=== PATIENT | female | born 1930 | race African-American/Black ===

== ENCOUNTER 2016-08-08 12:51 | Inpatient (IN) | payer MEDICARE, OTHER ==
[2016-08-08] VITALS (7 sets, daily range): BP systolic 120–162; BP diastolic 58–88; PULSE 65–118; RESP 16–20; TEMP 98.1–99.1; O2SAT 86–100
[~2016-08-08] VITALS: Ht 157.5 cm; Wt 77.6 kg
[2016-08-08] MEDS ORDERED: SODIUM CHLORIDE 0.9% FLUSH 5 ML FLUSH IVF PRN (13:30)
[2016-08-08] MEDS ORDERED: methylPREDNISolone SOD SUCC 125 MG/2 ML VIAL IVP ONE (13:30)
--- NOTE | 2016-08-08 13:36 | PD ---
HPI Chief Complaint: Respiratory Symptoms Time Seen by Provider: 13:16 Travel History International Travel<30 days: No Contact w/Intl Traveler<30days: No Traveled to known affect area: No History of Present Illness HPI 85-year-old female with history of diabetes, CVA, on Plavix, brought in from home for evaluation of cough and shortness of breath. According to the patient' s grandson, the patient seems more short of breath at night. Shortness of breath has been worse over the last couple of days, is at rest, worse with exertion. No known history of cardiopulmonary disease. She states she has been coughing, but it has been nonproductive. No fevers or chills. No abdominal pain, nausea, or vomiting. The patient also reports a history of a blood clot in her left leg years ago, however she is not on any anticoagulants. No chest pain. PFSH Past Medical History Deep Vein Thrombosis: Yes Influenza Vaccination: No Past Surgical History Surgical History: No Previous Surgery Social History Alcohol Use: Yes (RARELY) Tobacco Use: No Substance Use: No Allergies-Medications (Allergen,Severity, Reaction): Coded Allergies: Penicillin (Verified Allergy, Unknown, 08/08/16) Reported Meds & Prescriptions Reported Meds & Active Scripts Active Reported Gabapentin 100 Mg Cap 100 Mg PO HS Aspirin 325 Mg Tab 325 Mg PO ONCE Hydralazine (Hydralazine HCl) 25 Mg Tab 25 Mg PO TID Take with a meal Levothyroxine (Levothyroxine Sodium) 88 Mcg Tab 88 Mcg PO DAILY Glimepiride 2 Mg Tab 2 Mg PO DAILY Take with breakfast or first main meal Clopidogrel (Clopidogrel Bisulfate) 75 Mg Tab 37.5 Mg PO DAILY Amlodipine (Amlodipine Besylate) 10 Mg Tab 10 Mg PO DAILY Review of Systems Except as stated in HPI: all other systems reviewed are Neg Physical Exam Narrative GENERAL: Pleasant, well-developed, well-nourished, elderly-appearing female, in mild to moderate respiratory distress, speaking full sentences. SKIN: Warm and dry. HEAD: Atraumatic. Normocephalic. EYES: Pupils equal and round. No scleral icterus. No injection or drainage. ENT: Mucous membranes pink and moist. NECK: Trachea midline. No JVD. CARDIOVASCULAR: Regular rate and rhythm. No murmur appreciated. RESPIRATORY: Accessory muscle use. Intercostal retractions. Inspiratory and expiratory wheezes bilaterally. Coarse breath sounds bilaterally. No rales. Poor air movement bilaterally. GASTROINTESTINAL: Abdomen soft, non-tender, nondistended. Hepatic and splenic margins not palpable. MUSCULOSKELETAL: No obvious deformities. No clubbing. No cyanosis. Mild bilateral pedal edema. NEUROLOGICAL: Awake and alert. No obvious cranial nerve deficits. Motor grossly within normal limits. Normal speech. PSYCHIATRIC: Appropriate mood and affect; insight and judgment normal. Data Data Last Documented VS Vital Signs Date Time Temp Pulse Resp B/P Pulse Ox O2 Delivery O2 Flow Rate FiO2 08/08/16 14:51 65 16 154/77 98 Nasal Cannula 2 08/08/16 12:53 98.1 Orders Electrocardiogram (08/08/16 ) Complete Blood Count With Diff (08/08/16 13:20) Comprehensive Metabolic Panel (08/08/16 13:20) B-Type Natriuretic Peptide (08/08/16 13:20) Act Partial Throm Time (Ptt) (08/08/16 13:20) Prothrombin Time / Inr (Pt) (08/08/16 13:20) Ckmb (Isoenzyme) Profile (08/08/16 13:20) Troponin I (08/08/16 13:20) Arterial Blood Gas (Abg) (08/08/16 13:20) Influenzae A/B Antigen (08/08/16 13:20) Blood Culture (08/08/16 13:20) Iv Access Insert/Monitor (08/08/16 13:20) Ecg Monitoring (08/08/16 13:20) Oximetry (08/08/16 13:20) Oxygen Administration (08/08/16 13:20) Chest, Single Ap (08/08/16 13:20) Sodium Chloride 0.9% Flush (Ns Flush) (08/08/16 13:30) Methylprednisolone So Succ Inj (Solumedr (08/08/16 13:30) Albuterol-Ipratropium Neb (Duoneb Neb) (08/08/16 13:30) Lactic Acid (08/08/16 13:20) Furosemide Inj (Lasix Inj) (08/08/16 15:15) Ceftriaxone Inj (Rocephin Inj) (08/08/16 15:15) Azithromycin Inj (Zithromax Inj) (08/08/16 15:15) Labs Laboratory Tests Test 08/08/16 08/08/16 08/08/16 13:35 13:39 14:05 White Blood Count 5.8 TH/MM3 Red Blood Count 4.84 MIL/MM3 Hemoglobin 12.2 GM/DL Hematocrit 38.3 % Mean Corpuscular Volume 79.0 FL Mean Corpuscular Hemoglobin 25.2 PG Mean Corpuscular Hemoglobin 31.9 % Concent Red Cell Distribution Width 17.0 % Platelet Count 170 TH/MM3 Mean Platelet Volume 10.1 FL Neutrophils (%) (Auto) 67.4 % Lymphocytes (%) (Auto) 20.8 % Monocytes (%) (Auto) 8.0 % Eosinophils (%) (Auto) 2.5 % Basophils (%) (Auto) 1.3 % Neutrophils # (Auto) 3.9 TH/MM3 Lymphocytes # (Auto) 1.2 TH/MM3 Monocytes # (Auto) 0.5 TH/MM3 Eosinophils # (Auto) 0.1 TH/MM3 Basophils # (Auto) 0.1 TH/MM3 CBC Comment DIFF FINAL Differential Comment Prothrombin Time 10.7 SEC Prothromb Time International 1.0 RATIO Ratio Activated Partial 25.7 SEC Thromboplast Time Sodium Level 142 MEQ/L Potassium Level 4.1 MEQ/L Chloride Level 109 MEQ/L Carbon Dioxide Level 21.8 MEQ/L Anion Gap 11 MEQ/L Blood Urea Nitrogen 18 MG/DL Creatinine 2.24 MG/DL Estimat Glomerular Filtration 25 ML/MIN Rate Random Glucose 106 MG/DL Calcium Level 8.7 MG/DL Total Bilirubin 0.5 MG/DL Aspartate Amino Transf 21 U/L (AST/SGOT) Alanine Aminotransferase 18 U/L (ALT/SGPT) Alkaline Phosphatase 100 U/L Total Creatine Kinase 78 U/L Troponin I 0.07 NG/ML B-Type Natriuretic Peptide 1113 PG/ML Total Protein 7.6 GM/DL Albumin 3.6 GM/DL Blood Gas Puncture Site RT RADIAL Blood Gas Patient Temperature 98.6 Blood Gas HCO3 23 mmol/L Blood Gas Base Excess -2.0 mmol/L Blood Gas Oxygen Saturation 96 % Arterial Blood pH 7.36 Arterial Blood Partial 42 mmHg Pressure CO2 Arterial Blood Partial 257 mmHG Pressure O2 Arterial Blood Oxygen Content 14.5 Vol % Arterial Blood 2.1 % Carboxyhemoglobin Arterial Blood Methemoglobin 1.6 % Blood Gas Hemoglobin 10.3 G/DL Oxygen Delivery Device MASK Blood Gas Liter Flow 8 L/M Lactic Acid Level 1.1 mmol/L MDM Medical Decision Making Medical Screen Exam Complete: Yes Emergency Medical Condition: Yes Interpretation(s) EKG: Sinus, rate 81, normal axis, RBBB, frequent supraventricular complexes, no acute ischemic abnormality. Differential Diagnosis Sepsis, pneumonia, reactive airway disease, CHF, pulmonary edema, oral effusion , PE, ACS Narrative Course Initial vital signs show heart rate 118, blood pressure 162/79, pulse ox 86% on room air, oral temp of 98.1F. CBC shows WBC 5.8, hemoglobin 12.2, hematocrit 30.3, platelets 170. CMP shows creatinine 2.24, GFR 25, otherwise unremarkable. Lactic acid is 1.1. Troponin is 0.07. BNP is 1113. Chest x-ray: CONCLUSION: 1. Cardiomegaly. 2. Bibasilar patchiness (left slightly worse than right) consistent with atelectasis and/or infiltrates. Clinical correlation is recommended. 3. Degenerative changes and scoliosis of the thoracolumbar spine. Influenza is negative. Bibasilar patchiness is likely pulmonary edema given BNP of 1113. She was given a dose of IV Lasix 40 mg. 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 She was also given Rocephin and azithromycin to cover for possible pulmonary infiltrate. She will be admitted for further treatment and evaluation of CHF, dyspnea. Diagnosis Primary Impression: CHF (congestive heart failure) Qualified Code: I50.9 - Congestive heart failure, unspecified congestive heart failure chronicity, unspecified congestive heart failure type Additional Impression: Dyspnea Qualified Code: R06.00 - Dyspnea, unspecified type Admitting Information Admitting Physician Requests: Admit Kristian Alcala MD Aug 08, 2016 13:36
[2016-08-08] MEDS: RESP: ALBUTEROL 2.5 MG/IPRATROPIUM 0.5 MG NEB (SCH) INH (13:41)
[2016-08-08 13:49] LABS: BLOOD GAS CARBOXYHEMOGLOBIN 2.1 % (0-4); BLOOD GAS HCO3 23 mmol/L (22-26); BLOOD GAS METHEMOGLOBIN 1.6 % (0-2); BLOOD GAS O2 HGB SATURATION 96 % (90-100); BLOOD GAS OXYGEN CONTENT 14.5 Vol % (12.0-20.0); BLOOD GAS PCO2 42 mmHg (38-42); BLOOD GAS PO2 257 mmHG (61-120); BLOOD GAS TOTAL HGB 10.3 G/DL (12.0-16.0); CRITICAL VALUE NO; DRAW SITE RT RADIAL; LITER FLOW 8 L/M; NUMBER OF ARTERIAL PUNCTURES 1; OXYGEN DEVICE MASK; STAT YES; TEMP CORR TO 98.6; ULNAR PULSE PRESENT
[2016-08-08 13:58] LABS: APTT (PATIENT) 25.7 SEC (24.3-30.1); AUTOMATED NEUTROPHIL # 3.9 TH/MM3 (1.8-7.7); BASOPHIL # 0.1 TH/MM3 (0-0.2); BASOPHIL % 1.3 % (0.0-2.0); EOSINOPHIL # 0.1 TH/MM3 (0-0.4); EOSINOPHIL % 2.5 % (0.0-4.0); HEMATOCRIT 38.3 % (35.0-46.0); HEMO FLAGS DIFF FINAL; LYMPH % 20.8 % (9.0-44.0); LYMPHOCYTE # 1.2 TH/MM3 (1.0-4.8); MEAN CORPUSCULAR HEMOGLOBIN 25.2 PG (27.0-34.0); MEAN CORPUSCULAR HGB CONC 31.9 % (32.0-36.0); NEUT % 67.4 % (16.0-70.0); PLATELET COUNT 170 TH/MM3 (150-450); PROTHROMBIN TIME - PATIENT 10.7 SEC (9.8-11.6); RED BLOOD COUNT 4.84 MIL/MM3 (4.00-5.30); WHITE BLOOD COUNT 5.8 TH/MM3 (4.0-11.0)
[2016-08-08 14:16] LABS: ALKALINE PHOSPHATASE 100 U/L (45-117); ALT (GPT) 18 U/L (10-53); ANION GAP 11 MEQ/L (5-15); BICARBONATE 21.8 MEQ/L (21.0-32.0); BLOOD UREA NITROGEN 18 MG/DL (7-18); CHLORIDE 109 MEQ/L (98-107); GLOMERULAR FILTRATION RATE 25 ML/MIN (>89); SODIUM (NA) 142 MEQ/L (136-145); TOTAL BILIRUBIN ADULT 0.5 MG/DL (0.2-1.0)
[2016-08-08 14:17] LABS: AST (GOT) 21 U/L (15-37); CREATINE KINASE 78 U/L (26-192); POTASSIUM 4.1 MEQ/L (3.5-5.1)
--- NOTE | 2016-08-08 15:11 | RADRPT ---
EXAM DATE/TIME: 08/08/2016 13:59 [facility] COMPARISON: No previous studies available for comparison. INDICATIONS : Shortness of breath. MEDICAL HISTORY : Unobtainable. SURGICAL HISTORY : Unobtainable. ENCOUNTER: Initial ACUITY: 1 day PAIN SCORE: 0/10 LOCATION: Chest FINDINGS: The heart is enlarged. Minimal patchiness is noted within the left lung base and to a lesser extent right lung base consistent with atelectasis and/or infiltrates. Clinical correlation is recommended. Degenerative changes and scoliosis of the thoracolumbar spine are noted. CONCLUSION: 1. Cardiomegaly. 2. Bibasilar patchiness (left slightly worse than right) consistent with atelectasis and/or infiltrat es. Clinical correlation is recommended. 3. Degenerative changes and scoliosis of the thoracolumbar spine. Ari Fiore MD on August 08, 2016 at 14:59 Board Certified Radiologist. This report was verified electronically.
[2016-08-08] MEDS ORDERED: cefTRIAXone INJ 1,000 MG in SODIUM CHLORIDE 0.9% INJ 100 ML IV ONE (15:15)
[2016-08-08] MEDS ORDERED: FUROSEMIDE 40 MG/4 ML VIAL IV PUSH ONE (15:15)
[2016-08-08] MEDS ORDERED: AZITHROMYCIN INJ 500 MG in SODIUM CHLOR 0.9% 250 ML INJ 250 ML IV ONE (15:15)
[2016-08-08] MEDS ORDERED: HYDR25TA35 PO (15:18)
[2016-08-08] MEDS ORDERED: ASPI325T PO (15:18)
[2016-08-08] MEDS ORDERED: GLIM2TAB PO (15:18)
[2016-08-08] MEDS ORDERED: AMLO10TA2 PO (15:18)
[2016-08-08] MEDS ORDERED: GABA100C4 PO (15:18)
[2016-08-08] MEDS ORDERED: CLOP75TA PO (15:18)
[2016-08-08] MEDS ORDERED: LEVO88TA2 PO (15:18)
[2016-08-08] MEDS ORDERED: NALOXONE HCL 0.4 MG/ML AMP IV PRN (17:00)
[2016-08-08] MEDS ORDERED: SODIUM CHLORIDE 0.9% FLUSH 5 ML FLUSH FLUSH PRN (17:00)
[2016-08-08] MEDS ORDERED: ONDANSETRON HCL 4 MG/2 ML VIAL IVP PRN (17:00)
[2016-08-08] MEDS ORDERED: ACETAMINOPHEN 325 MG TAB PO PRN (17:00)
[2016-08-08] MEDS ORDERED: MAGNESIUM HYDROXIDE SUSP 30 ML CUP PO PRN (17:00)
--- NOTE | 2016-08-08 17:31 | HHI.HP ---
[facility] No Primary Care Physician Admission Diagnosis CHF, dyspnea, hypoxia Diagnoses: Chief Complaint: Increased shortness of breath, cough Travel History International Travel<30 Days: No Contact w/Intl Traveler <30 Da: No Traveled to Known Affected Are: No Sepsis Criteria SIRS Criteria (2 or more): Heart rate over 90 History of Present Illness Patient is an 85-year-old female with primary medical history of hypertension, diabetes, CVA who came into the hospital with complaints of increasing shortness of breath and increasing cough. Reports that she has been having increasing shortness of breath cough started a few days ago but worsened in the last 2 days. Patient reports worse with exertion. Coughing but not expectorating anything. Denies any history of cardiopulmonary disease or diagnosis of congestive heart failure. Denies fevers, chills, nausea, vomiting , diarrhea. Denies chest pain, palpitations, headache, lightheadedness. Denies any dysuria, hematuria, abdominal pain. As per ER report, patient but history of blood clot in her left leg years ago but not on any anticoagulants. Labs reviewed. CBC with low MCV 79, MCH 25.5, MCHC 31.9. CMP chloride 109, creatinine 2.24, estimated GFR 25. First troponin 0.07. BNP 1113. Chest x-ray showed cardiomegaly. Bibasilar patchiness (left slightly worse than right) consistent with atelectasis and/or infiltrates. Clinical correlation is recommended. Degenerative changes and scoliosis of the thoracolumbar spine. Negative for flu a and B. Blood Cultures pending The patient complains of increasing shortness of breath. She does complain of chest pain from time to time. She does admit to some lower extremity swelling. She ambulates with a cane and a walker. She does not have home oxygen. She does not follow-up with doctors regularly. She was complaining of pain in her left IV site. Review of Systems Except as stated in HPI: all other systems reviewed are Neg Negative except for what is noted on history of present illness. Past Family Social History Past Medical History HTN DM Hypothyroidism CVA DVT Past Surgical History None Reported Medications Gabapentin 100 Mg Cap 100 Mg PO HS Aspirin 325 Mg Tab 325 Mg PO ONCE Hydralazine (Hydralazine HCl) 25 Mg Tab 25 Mg PO TID Take with a meal Levothyroxine (Levothyroxine Sodium) 88 Mcg Tab 88 Mcg PO DAILY Glimepiride 2 Mg Tab 2 Mg PO DAILY Take with breakfast or first main meal Clopidogrel (Clopidogrel Bisulfate) 75 Mg Tab 37.5 Mg PO DAILY Amlodipine (Amlodipine Besylate) 10 Mg Tab 10 Mg PO DAILY Allergies: Coded Allergies: Penicillin (Verified Allergy, Unknown, 08/08/16) Active Ordered Medications Current Medications Medications (Trade) Dose Ordered Sig/Vern Route Start Time Stop Time Status Last Admin (NS Flush) 2 ml UNSCH PRN IVF 08/08/16 13:30 Family History Patient does not know family medical history Social History Denies alcohol use Denies tobacco use Denies illicit drug use Physical Exam Vital Signs Vital Signs Date Time Temp Pulse Resp B/P Pulse Ox O2 Delivery O2 Flow Rate FiO2 08/08/16 14:51 65 16 154/77 98 Nasal Cannula 2 08/08/16 13:24 96 Nasal Cannula 2 08/08/16 12:53 98.1 118 17 162/79 86 Physical Exam GENERAL: This is a well-nourished, well-developed patient, in no apparent distress. SKIN: No rashes, ecchymoses or lesions. Cool and dry. HEAD: Atraumatic. Normocephalic. No temporal or scalp tenderness. EYES: Pupils equal round and reactive. Extraocular motions intact. No scleral icterus. No injection or drainage. Right eye lid droop ENT: Nose without bleeding. Throat without erythema. Uvula midline. Airway patent. NECK: Trachea midline. No JVD or lymphadenopathy. Supple, nontender, no meningeal signs. CARDIOVASCULAR: Regular rate and rhythm without murmurs, gallops, or rubs. RESPIRATORY: Bilateral bases with crackles left greater than the right. On 2 L nasal cannula. + expiratory wheezing. GASTROINTESTINAL: Abdomen soft, non-tender, nondistended. No sounds active 4 No guarding. MUSCULOSKELETAL: Extremities without clubbing, cyanosis, bilateral lower extremity +1 edema right greater than the left. No joint tenderness, effusion, or edema noted. No calf tenderness. Negative Homans sign bilaterally. NEUROLOGICAL: Awake and alert. Motor and sensory grossly within normal limits. Moves all extremities. Normal speech. Laboratory Laboratory Tests Test 08/08/16 08/08/16 08/08/16 13:35 13:39 14:05 White Blood Count 5.8 Red Blood Count 4.84 Hemoglobin 12.2 Hematocrit 38.3 Mean Corpuscular Volume 79.0 Mean Corpuscular Hemoglobin 25.2 Mean Corpuscular Hemoglobin 31.9 Concent Red Cell Distribution Width 17.0 Platelet Count 170 Mean Platelet Volume 10.1 Neutrophils (%) (Auto) 67.4 Lymphocytes (%) (Auto) 20.8 Monocytes (%) (Auto) 8.0 Eosinophils (%) (Auto) 2.5 Basophils (%) (Auto) 1.3 Neutrophils # (Auto) 3.9 Lymphocytes # (Auto) 1.2 Monocytes # (Auto) 0.5 Eosinophils # (Auto) 0.1 Basophils # (Auto) 0.1 CBC Comment DIFF FINAL Differential Comment Prothrombin Time 10.7 Prothromb Time International 1.0 Ratio Activated Partial 25.7 Thromboplast Time Sodium Level 142 Potassium Level 4.1 Chloride Level 109 Carbon Dioxide Level 21.8 Anion Gap 11 Blood Urea Nitrogen 18 Creatinine 2.24 Estimat Glomerular Filtration 25 Rate Random Glucose 106 Calcium Level 8.7 Total Bilirubin 0.5 Aspartate Amino Transf 21 (AST/SGOT) Alanine Aminotransferase 18 (ALT/SGPT) Alkaline Phosphatase 100 Total Creatine Kinase 78 Troponin I 0.07 B-Type Natriuretic Peptide 1113 Total Protein 7.6 Albumin 3.6 Blood Gas Puncture Site RT RADIAL Blood Gas Patient Temperature 98.6 Blood Gas HCO3 23 Blood Gas Base Excess -2.0 Blood Gas Oxygen Saturation 96 Arterial Blood pH 7.36 Arterial Blood Partial 42 Pressure CO2 Arterial Blood Partial 257 Pressure O2 Arterial Blood Oxygen Content 14.5 Arterial Blood 2.1 Carboxyhemoglobin Arterial Blood Methemoglobin 1.6 Blood Gas Hemoglobin 10.3 Oxygen Delivery Device MASK Blood Gas Liter Flow 8 Lactic Acid Level 1.1 Date/Time Procedure Status Source Growth 08/08/16 14:05 Aerobic Blood Culture Received Blood Peripheral Pending 08/08/16 14:05 Anaerobic Blood Culture Received Blood Peripheral Pending 08/08/16 13:35 Influenza Types A,B Antigen ([facility]) - Final Complete Nasal Washing NEGATIVE FOR FLU A AND B ANTIGEN.... Result Diagram: 08/08/16 1335 08/08/16 1335 Imaging Chest x-ray showed cardiomegaly. Bibasilar patchiness (left slightly worse than right) consistent with atelectasis and/or infiltrates. Clinical correlation is recommended. Degenerative changes and scoliosis of the thoracolumbar spine. Assessment and Plan Problem List: (1) CHF (congestive heart failure) ICD Code: I50.9 Status: Acute (2) Dyspnea ICD Code: R06.00 Status: Acute (3) HTN (hypertension) ICD Code: I10 Status: Chronic (4) DM type 2 (diabetes mellitus, type 2) ICD Code: E11.9 Status: Chronic Assessment and Plan Patient is an 85-year-old female with primary medical history of hypertension, diabetes, CVA who came into the hospital with complaints of increasing shortness of breath and increasing cough. Reports that she has been having increasing shortness of breath cough started a few days ago but worsened in the last 2 days. Patient reports worse with exertion. Coughing but not expectorating anything. Acute CHF exacerbation - BNP 1113. Patient was never diagnosed CHF previously. Has not been seen by any base ply hand. - Lasix 40 mg given. Will continue Lasix use. Pt. has not voided yet, Trejo to insert monitor I& O. - Echo ordered. Follow-up results - Cardiology consulted for further recommendations. - Continue O2 2 L nasal cannula. Continue diuresis. Check a lipid profile and hemoglobin A1c. Follow echo results. Add a beta echo. Follow with cardiology. ? PNA - chest x-ray showed cardiomegaly. Bibasilar patchiness (left slightly worse than right) consistent with atelectasis and/or infiltrates. Clinical correlation is recommended. Degenerative changes and scoliosis of the thoracolumbar spine. - Patient was given ceftriaxone, azithromycin in the ED - Also given methylprednisone 125 mg IV, DuoNeb treatments. - Continue with DuoNeb's when necessary Continue IV antibiotics. Check a sputum culture. Acute kidney injury on chronic kidney disease - possible chronic kidney disease secondary to diabetes - Creatinine 2.24, BUN 18 - Avoid unnecessary nephrotoxins. Unsure of baseline. Continue to monitor creatinine while diuresing. HTN - monitor BP trend. Patient on Norvasc 10 mg, hydralazine 25 3 times a day at home Hold Norvasc for now. Continue home hydralazine. DM 2 - we will hold off on glimepiride. Insulin sliding scale. - Monitor Accu-Cheks. Monitor for hypoglycemia. Hypothyroidism continue with levothyroxine History of CVA - on ASA, Plavix Previous history of DVT not on any anticoagulants DVT prop heparin Code Status Full Code Discussed Condition With Patient, nursing, Physician Certification 2 Midnight Certification Type: Admission for Inpatient Services Order for Inpatient Services The services are ordered in accordance with Medicare regulations or non- Medicare payer requirements, as applicable. In the case of services not specified as inpatient-only, they are appropriately provided as inpatient services in accordance with the 2-midnight benchmark. Estimated LOS (days): 2 days is the estimated time the patient will need to remain in the hospital, assuming treatment plan goals are met and no additional complications. Post-Hospital Plan: Not yet determined Notes: The exam, history, and the medical decision-making described in the above note were completed with the assistance of the mid-level provider. I reviewed and agree with the findings presented. I attest that I had a [id number] encounter with the patient on the same day, and personally performed and documented my assessment and findings in the medical record. Problem Qualifiers (1) CHF (congestive heart failure): Qualified Code: I50.9 - Congestive heart failure, unspecified congestive heart failure chronicity, unspecified congestive heart failure type (2) Dyspnea: Qualified Code: R06.00 - Dyspnea, unspecified type (3) DM type 2 (diabetes mellitus, type 2): Donell Hinton Aug 08, 2016 17:31 Bishop Ruano DO Aug 08, 2016 18:36
[2016-08-08 17:41] LABS: BLOOD, URINE NEG (NEG); COMMENT (UR) CULT NOT INDICATED; CULTURE IF INDICATED CULT NOT INDICATED; GLUCOSE,URINE NEG (NEG); HYALINE CAST, URINE 1 /lpf (RARE); KETONE, URINE NEG (NEG); MUCUS URINE FEW /lpf (OCC); NITRITE,URINE NEG (NEG); SQUAMOUS EPITHELIAL CELL URINE <1 /hpf (0-5); URINE COLOR YELLOW (YELLW/STRAW)
[2016-08-08] MEDS ORDERED: RESP: ALBUTEROL 2.5 MG/IPRATROPIUM 0.5 MG NEB (PRN) NEB (18:30)
[2016-08-08] MEDS ORDERED: ASPIRIN 325 MG TAB PO SCH (19:00)
[2016-08-08] MEDS: RESP: ALBUTEROL 2.5 MG/IPRATROPIUM 0.5 MG NEB (SCH) NEB (19:12)
[2016-08-08] MEDS: FUROSEMIDE 40 MG/4 ML VIAL IV PUSH SCH (19:56)
[2016-08-08] MEDS: CARVEDILOL 3.125 MG TAB PO SCH (20:45)
[2016-08-08] MEDS: hydrALAZINE HCL 25 MG TAB PO SCH (20:45)
[2016-08-08] MEDS: SODIUM CHLORIDE 0.9% FLUSH 5 ML FLUSH FLUSH SCH (20:45)
[2016-08-08] MEDS: GABAPENTIN 100 MG CAP PO SCH (20:46)
[2016-08-08] MEDS: INSULIN ASPART SUPPLEMENTAL SCALE SQ SCH (21:01)
[2016-08-08] MEDS: HEPARIN SODIUM - SQ 10,000 UNITS/ML VIAL SQ SCH (21:58)
[2016-08-08 22:56] LABS: HEMOGLOBIN A1a 0.9 %; HEMOGLOBIN A1b 1.8 %; HEMOGLOBIN Ao 85.9 %; HEMOGLOBIN P3 3.9 %
[2016-08-09] VITALS (10 sets, daily range): BP systolic 96–140; BP diastolic 52–87; PULSE 76–88; RESP 18–20; TEMP 96.5–99.5; O2SAT 93–100
[2016-08-09 02:25] LABS: AUTOMATED NEUTROPHIL # 3.3 TH/MM3 (1.8-7.7); BASOPHIL % 0.6 % (0.0-2.0); EOSINOPHIL % 0.1 % (0.0-4.0); HEMATOCRIT 32.2 % (35.0-46.0); LYMPH % 7.6 % (9.0-44.0); LYMPHOCYTE # 0.3 TH/MM3 (1.0-4.8); MEAN CELL VOLUME 78.8 FL (80.0-100.0); MEAN CORPUSCULAR HEMOGLOBIN 24.5 PG (27.0-34.0); MEAN CORPUSCULAR HGB CONC 31.1 % (32.0-36.0); NEUT % 89.7 % (16.0-70.0); PLATELET COUNT 157 TH/MM3 (150-450); RED BLOOD COUNT 4.08 MIL/MM3 (4.00-5.30); RED CELL DISTRIBUTION WIDTH 16.3 % (11.6-17.2); WHITE BLOOD COUNT 3.6 TH/MM3 (4.0-11.0)
[2016-08-09 02:42] LABS: HEMO FLAGS AUTO DIFF
[2016-08-09 03:18] LABS: ALKALINE PHOSPHATASE 85 U/L (45-117); ALT (GPT) 14 U/L (10-53); ANION GAP 9 MEQ/L (5-15); AST (GOT) 13 U/L (15-37); BICARBONATE 23.9 MEQ/L (21.0-32.0); BLOOD UREA NITROGEN 24 MG/DL (7-18); CHLORIDE 112 MEQ/L (98-107); GLOMERULAR FILTRATION RATE 24 ML/MIN (>89); HDL CHOLESTEROL 81.5 MG/DL (40.0-60.0); LDL CHOLESTEROL 90 MG/DL (0-99); POTASSIUM 4.3 MEQ/L (3.5-5.1); SODIUM (NA) 145 MEQ/L (136-145); TOTAL BILIRUBIN ADULT 0.3 MG/DL (0.2-1.0)
[2016-08-09 04:01] LABS: PLATELET ESTIMATE SMEAR LOW (NORMAL); PLATELET MORPHOLOGY NORMAL (NORMAL); SCAN/DIFF AUTO DIFF CONFIRMED
[2016-08-09 04:02] LABS: OVALOCYTES 1+ (NORMAL)
[2016-08-09] MEDS: HEPARIN SODIUM - SQ 10,000 UNITS/ML VIAL SQ SCH ×3 (06:37→21:11)
[2016-08-09] MEDS: INSULIN ASPART SUPPLEMENTAL SCALE SQ SCH ×4 (06:37→21:00)
[2016-08-09] MEDS: LEVOTHYROXINE SODIUM 88 MCG TAB PO SCH (06:37)
[2016-08-09] MEDS: SODIUM CHLORIDE 0.9% FLUSH 5 ML FLUSH FLUSH SCH ×2 (09:00→21:11)
[2016-08-09] MEDS ORDERED: AZITHROMYCIN 250 MG TAB PO SCH (09:00)
[2016-08-09] MEDS: FUROSEMIDE 40 MG/4 ML VIAL IV PUSH SCH ×3 (09:00→17:59)
[2016-08-09] MEDS: hydrALAZINE HCL 25 MG TAB PO SCH ×3 (09:00→17:32)
[2016-08-09] MEDS: CARVEDILOL 3.125 MG TAB PO SCH ×2 (09:00→21:00)
[2016-08-09] MEDS: CLOPIDOGREL 75 MG TAB PO SCH (09:00)
[2016-08-09] MEDS: POTASSIUM CHLORIDE 10 MEQ CONTROLLED RELEASE TAB PO SCH (09:00)
[2016-08-09] MEDS: RESP: ALBUTEROL 2.5 MG/IPRATROPIUM 0.5 MG NEB (SCH) NEB ×3 (09:54→21:07)
--- NOTE | 2016-08-09 13:25 | EKG ---
Date Performed: 08/08/2016 Time Performed: 19:18:59 PTAGE: 85 years EKG: Sinus rhythm WITH OCCASIONAL SUPRAVENTRICULAR PREMATURE COMPLEXES INDETERMINATE AXIS RIGHT BUNDLE BRANCH BLOCK AB NORMAL ECG PREVIOUS TRACING : 08/08/2016 13.29 Since previous tracing, no significant change noted DOCTOR: Scotty Berry Interpretating Date/Time 08/09/2016 13:27:17
--- NOTE | 2016-08-09 13:27 | EKG ---
Date Performed: 08/08/2016 Time Performed: 13:29:58 PTAGE: 85 years EKG: Sinus rhythm WITH FREQUENT SUPRAVENTRICULAR PREMATURE COMPLEXES RIGHT BUNDLE BRANCH BLOCK ABNORMAL ECG NO PREVIOUS TRACING DOCTOR: Scotty Berry Interpretating Date/Time 08/09/2016 13:25:51
--- NOTE | 2016-08-09 14:33 | HHI.PR ---
Subjective Remarks The patient said that she was feeling better. She said that she has a history of kidney problems and she is followed with a doctor in [place] for it. She had no acute complaints at this time. She said she does cough and sneeze every once in a while. Nursing was at the bedside. Objective Vitals Vital Signs Date Time Temp Pulse Resp B/P Pulse Ox O2 Delivery O2 Flow Rate FiO2 08/09/16 11:25 96.7 85 20 123/70 97 08/09/16 09:56 99 Nasal Cannula 3.00 08/09/16 07:48 96.5 85 20 140/87 98 08/09/16 04:00 98.6 76 18 133/68 98 08/09/16 01:00 97.4 85 20 111/55 93 08/08/16 23:42 99.1 92 20 120/58 99 Nasal Cannula 2 08/08/16 19:30 98.9 84 20 143/64 95 Nasal Cannula 2 08/08/16 19:13 93 Nasal Cannula 2.00 08/08/16 18:13 97 16 145/88 97 Nasal Cannula 2 08/08/16 16:45 66 16 127/69 100 Nasal Cannula 2 08/08/16 14:51 65 16 154/77 98 Nasal Cannula 2 I/O 08/08/16 08/08/16 08/08/16 08/09/16 08/09/16 08/09/16 07:00 15:00 23:00 07:00 15:00 23:00 Intake Total 200 ml Output Total 1550 ml Balance 200 ml -1550 ml Intake Oral 200 ml Output Urine Total 1550 ml Result Diagram: 08/09/1620208/09/16 0203 Imaging Last Impressions Chest X-Ray 08/08/16 1320 Signed Impressions: Service Date/Time: Monday, August 08, 2016 13:59 - CONCLUSION: 1. Cardiomegaly. 2. Bibasilar patchiness (left slightly worse than right) consistent with atelectasis and/or infiltrates. Clinical correlation is recommended. 3. Degenerative changes and scoliosis of the thoracolumbar spine. Ari Firoe MD Objective Remarks GENERAL: This is a well-nourished, well-developed patient, in no apparent distress. SKIN: No rashes, ecchymoses or lesions. Cool and dry. HEAD: Atraumatic. Normocephalic. No temporal or scalp tenderness. EYES: Pupils equal round and reactive. Extraocular motions intact. No scleral icterus. No injection or drainage. Right eye lid droop ENT: Nose without bleeding. Throat without erythema. Uvula midline. Airway patent. NECK: Trachea midline. No JVD or lymphadenopathy. Supple, nontender, no meningeal signs. CARDIOVASCULAR: Regular rate and rhythm without murmurs, gallops, or rubs. RESPIRATORY: Poor respiratory effort. GASTROINTESTINAL: Abdomen soft, non-tender, nondistended. No sounds active 4 No guarding. MUSCULOSKELETAL: Extremities without clubbing, cyanosis, bilateral lower extremity +1 edema right greater than the left. No joint tenderness, effusion noted. NEUROLOGICAL: Awake and alert. Motor and sensory grossly within normal limits. Moves all extremities. Normal speech. Medications and IVs Current Medications Medications (Trade) Dose Ordered Sig/Vern Route Start Time Stop Time Status Last Admin (NS Flush) 2 ml UNSCH PRN FLUSH 08/08/16 17:00 (NS Flush) 2 ml BID FLUSH 08/08/16 21:00 08/08/16 20:45 (Tylenol) 650 mg Q4H PRN PO 08/08/16 17:00 (Zofran Inj) 4 mg Q6H PRN IVP 08/08/16 17:00 (Milk Of Magnesia Liq) 30 ml Q12H PRN PO 08/08/16 17:00 (Narcan Inj) 0.4 mg UNSCH PRN IV 08/08/16 17:00 (Lasix Inj) 40 mg BID@,18 IV PUSH 08/08/16 20:00 08/08/16 19:56 (KCl) 10 meq DAILY PO 08/09/16 09:00 (Heparin Inj) 5,000 units Q8HR SQ 08/08/16 22:00 08/09/16 06:37 (Plavix) 37.5 mg DAILY PO 08/09/16 09:00 (Neurontin) 100 mg HS PO 08/08/16 21:00 08/08/16 20:46 (Apresoline) 25 mg TID PO 08/08/16 20:00 08/08/16 20:45 Levothyroxine Sodium 88 mcg 88 mcg DAILY@0600 PO 08/09/16 06:00 08/09/16 06:37 Azithromycin 500 mg/Sodium Chloride 250 ml @ 250 mls/hr Q24H IV 08/09/16 16:00 (Rocephin Inj/NS Inj) 100 ml @ 200 mls/hr Q24H IV 08/09/16 15:00 (Coreg) 3.125 mg Q12HR PO 08/08/16 21:00 08/08/16 20:45 (Pneumovax-23 Inj) 25 mcg ONCE ONCE IM 08/10/16 10:00 08/10/16 10:01 (Flu (Quadrivalent) Vaccine Inj) 0.5 ml ONCE ONCE IM 08/10/16 10:00 08/10/16 10:01 A/P Problem List: (1) CHF (congestive heart failure) ICD Code: I50.9 Status: Acute (2) Dyspnea ICD Code: R06.00 Status: Acute (3) HTN (hypertension) ICD Code: I10 Status: Chronic (4) DM type 2 (diabetes mellitus, type 2) ICD Code: E11.9 Status: Chronic Assessment and Plan Patient is an 85-year-old female with primary medical history of hypertension, diabetes, CVA who came into the hospital with complaints of increasing shortness of breath and increasing cough. Reports that she has been having increasing shortness of breath and cough that started a few days ago but worsened in the last 2 days. Patient reports symptoms are worse with exertion. Acute CHF exacerbation BNP 1113. Has not been seen by any vault person. LDL and HgbA1c not elevated. - Will continue IV Lasix. - Trejo to monitor I& O. - Echo ordered. - Cardiology consulted for further recommendations. - Continue O2 2 L nasal cannula. - Add a beta echo. PNA Chest x-ray showed cardiomegaly; Bibasilar patchiness (left slightly worse than right) consistent with atelectasis and/or infiltrates. Flu negative. - continue ceftriaxone, azithromycin. - nebs and oxygen as needed. - Check a sputum culture. Chronic kidney disease Unsure of baseline. - Continue to monitor creatinine while diuresing. - outpt follow-up. HTN Well controlled at this time. - Hold Norvasc for now. Continue home hydralazine. DM 2 A1c was 5.2%. - We will hold off on glimepiride. - Insulin sliding scale. Monitor Accu-Cheks. Anemia The pt is on ASA/ Plavix for history of CVA. - anemia work-up including Hemoccult. - follow CBC and transfuse as needed. DVT PPx: heparin. Discharge Planning Awaiting clinical improvement. Problem Qualifiers (1) CHF (congestive heart failure): Qualified Code: I50.9 - Congestive heart failure, unspecified congestive heart failure chronicity, unspecified congestive heart failure type (2) Dyspnea: Qualified Code: R06.00 - Dyspnea, unspecified type (3) DM type 2 (diabetes mellitus, type 2): Bishop Ruano DO Aug 09, 2016 14:33
[2016-08-09] MEDS: cefTRIAXone INJ 1,000 MG in SODIUM CHLORIDE 0.9% INJ 100 ML IV SCH (14:45)
[2016-08-09] MEDS ORDERED: AZITHROMYCIN INJ 500 MG in SODIUM CHLOR 0.9% 250 ML INJ 250 ML IV SCH (16:00)
[2016-08-09 16:17] LABS: TRANSFERRIN IRON PROFILE 223 MG/DL (200-360)
--- NOTE | 2016-08-09 16:35 | EC ---
Study Study Date:08/09/2016 STUDY CONCLUSIONS SUMMARY - Left ventricle: The cavity size was normal. Wall thickness was normal. Systolic function was mildly reduced. The estimated ejection fraction was in the range of 45% to 50%. Mild diffuse hypokinesis. - Aortic valve: Mean gradient: 14mm Hg (S). - Mitral valve: Mild regurgitation. - Left atrium: The atrium was mildly dilated. - Tricuspid valve: Mild regurgitation. - Pulmonary arteries: PA peak pressure: 41mm Hg (S). - Pericardium, extracardiac: There was a left pleural effusion. If LV function is below 40, please consider prescribing an ACEI or ARB or document rationale for non-use. PROCEDURE DATA STUDY STATUS: Elective. Procedure: Transthoracic echocardiography. Image quality was good. Scanning was performed from the parasternal, apical, and subcostal acoustic windows. Study completion: The patient tolerated the procedure well. Transthoracic echocardiography. M-mode, complete 2D, complete spectral Doppler, and color Doppler. Patient status: Inpatient. CARDIAC ANATOMY LEFT VENTRICLE: The cavity size was normal. Wall thickness was normal. Systolic function was mildly reduced. The estimated ejection fraction was in the range of 45% to 50%. Mild diffuse hypokinesis. AORTIC VALVE: Trileaflet; mildly thickened, mildly calcified leaflets. Doppler: Transvalvular velocity was within the normal range. There was no stenosis. No regurgitation. Mean gradient: 14mm Hg (S). Peak gradient: 24mm Hg (S). AORTA: Aortic root: The aortic root was normal in size. MITRAL VALVE: Structurally normal valve. Doppler: Transvalvular velocity was within the normal range. There was no evidence for stenosis. Mild regurgitation. LEFT ATRIUM: The atrium was mildly dilated. RIGHT VENTRICLE: The cavity size was normal. Wall thickness was normal. PULMONIC VALVE: Doppler: Transvalvular velocity was within the normal range. There was no evidence for stenosis. No regurgitation. TRICUSPID VALVE: Structurally normal valve. Doppler: Transvalvular velocity was within the normal range. Mild regurgitation. PULMONARY ARTERY: The main pulmonary artery was normal-sized. Systolic pressure was within the normal range. RIGHT ATRIUM: The atrium was normal in size. PERICARDIUM: There was no pericardial effusion. SYSTEMIC VEINS: Inferior vena cava: The vessel was normal in size. Pleura: There was a left pleural effusion. BASIC MEASUREMENTS ADULT NORMAL Left ventricle LV internal dimension, ED, chordal level, 50.5 mm 43-52 PLAX LV internal dimension, ES, chordal level, *39 mm 23-38 PLAX Fractional shortening, chordal level, PLAX *23 % >29 LV posterior wall thickness, ED 9.99 mm IVS/LVPW ratio, ED 1.01 <1.3 Ventricular septum Septal thickness, ED 10.1 mm Aortic valve Leaflet separation *11 mm 15-26 Right ventricle RV internal dimension, ED, PLAX 30.1 mm 19-38 BASIC MEASUREMENTS ADULT NORMAL Aortic valve Leaflet separation *11 mm 15-26 Aorta Root diameter, ED 34 mm 20-37 Left atrium Anterior-posterior dimension, ES *41 mm 19-40 LA/aortic root ratio 1.21 DOPPLER MEASUREMENTS ADULT NORMAL Main pulmonary artery Pressure, S *41 mm Hg =30 Aortic valve Peak velocity, S 245 cm/s Mean velocity, S 181 cm/s VTI, S 64.1 cm Mean gradient, S 14 mm Hg Peak gradient, S 24 mm Hg Tricuspid valve Regurgitant peak velocity 280 cm/s Peak RV-RA gradient, S 31 mm Hg Maximal regurgitant velocity 280 cm/s Systemic veins Estimated CVP 10 mm Hg Right ventricle RV pressure, S *41 mm Hg <30 LEGEND: Mean values are shown as u=mean value. Asterisk (*) waddell values outside specified normal range. Prepared and signed by Scotty Berry [id number]
--- NOTE | 2016-08-09 16:57 | MB ---
cc: FLORENCE KAUFMAN MD DATE OF CONSULTATION: 08/09/2016. REASON FOR CONSULTATION: New onset congestive heart failure. HISTORY OF PRESENT ILLNESS: The patient is very pleasant 85-year-old woman with no prior cardiac history who does have a history of hypertension, diabetes and CVA who presented with several days of worsening dyspnea and cough. Her initial BNP was elevated and she was given IV Lasix. As I am interviewing the patient this afternoon, she says she is feeling much better than when she presented with no residual shortness of breath. She also denies chest pain, lightheadedness, dizziness or syncope. PAST MEDICAL HISTORY: 1. Hypertension. 2. Diabetes. 3. Hypothyroidism. 4. CVA. 5. History of DVT. CURRENT MEDICATIONS: 1. Azithromycin. 2. Ceftriaxone. 3. Plavix 37.5 milligrams daily. 4. Subcutaneous heparin. 5. Coreg 3.125 milligrams twice a day. 6. Lasix 40 milligrams IV twice a day. 7. Hydralazine 25 milligrams three times a day. ALLERGIES: PENICILLIN. PHYSICAL EXAMINATION: VITAL SIGNS: Afebrile, pulse 85, respiratory rate 20, blood pressure 123/70, satting 97 on three liters. GENERAL: A very pleasant well-appearing elderly -[place] woman in no distress. NECK: No jugular venous distention. LUNGS: Slight crackles appreciated at the bases. CARDIOVASCULAR: Very distant heart sounds. No major murmurs appreciated. ABDOMEN: Benign. EXTREMITIES: No edema. LABORATORY DATA: White count 3.6, hematocrit 32.2, platelets 157,000. Sodium 145, potassium 4.3, chloride 112, bicarb 23.9, BUN 24, creatinine 2.36. Troponin 0.07, 0.05. BNP is 1113. EKGS: EKG shows sinus rhythm with nonspecific ST changes and right bundle-branch block. IMPRESSION: 1. Congestive heart failure. The patient had clinical findings consistent with congestive heart failure as well as an elevated BNP. She feels already significantly better on diuresis. Her creatinine did bump slightly but I still think she would benefit from a little more diuresis, so will keep a close eye on her renal function in tomorrow's labs. We will obtain an echocardiogram to evaluate her ejection fraction. If she does have a significantly reduced ejection fraction, we may consider nuclear stress testing. However, given her very advanced age, I will discuss this versus conservative medical therapy alone. Further recommendations based on her clinical course and results of echocardiogram. Thank you again for opportunity to participate this patient's care. MD ANGIE Parekh/CATRACHITA /2:31 PM /4:50 PM
[2016-08-09] MEDS: GABAPENTIN 100 MG CAP PO SCH (21:11)
[2016-08-10] VITALS (9 sets, daily range): BP systolic 101–138; BP diastolic 62–78; PULSE 67–92; RESP 18–20; TEMP 97–98.8; O2SAT 94–99
[2016-08-10] MEDS: LEVOTHYROXINE SODIUM 88 MCG TAB PO SCH (05:28)
[2016-08-10] MEDS: HEPARIN SODIUM - SQ 10,000 UNITS/ML VIAL SQ SCH ×3 (05:28→22:26)
[2016-08-10] MEDS: INSULIN ASPART SUPPLEMENTAL SCALE SQ SCH ×3 (06:42→20:21)
[2016-08-10] MEDS: RESP: ALBUTEROL 2.5 MG/IPRATROPIUM 0.5 MG NEB (SCH) NEB ×3 (08:19→20:50)
[2016-08-10 08:53] LABS: HEMATOCRIT 35.5 % (35.0-46.0); MEAN CELL VOLUME 79.5 FL (80.0-100.0); MEAN CORPUSCULAR HEMOGLOBIN 24.3 PG (27.0-34.0); MEAN CORPUSCULAR HGB CONC 30.6 % (32.0-36.0); PLATELET COUNT 167 TH/MM3 (150-450); RED BLOOD COUNT 4.46 MIL/MM3 (4.00-5.30); RED CELL DISTRIBUTION WIDTH 16.6 % (11.6-17.2); WHITE BLOOD COUNT 7.2 TH/MM3 (4.0-11.0)
[2016-08-10 08:59] LABS: REVIEW FLAG FINAL
[2016-08-10] MEDS: SODIUM CHLORIDE 0.9% FLUSH 5 ML FLUSH FLUSH SCH ×2 (09:00→20:15)
[2016-08-10] MEDS: hydrALAZINE HCL 25 MG TAB PO SCH ×3 (09:00→18:00)
[2016-08-10] MEDS: POTASSIUM CHLORIDE 10 MEQ CONTROLLED RELEASE TAB PO SCH (09:00)
[2016-08-10] MEDS: CARVEDILOL 3.125 MG TAB PO SCH ×2 (09:00→20:15)
[2016-08-10] MEDS: CLOPIDOGREL 75 MG TAB PO SCH (09:00)
[2016-08-10 09:10] LABS: BICARBONATE 24.9 MEQ/L (21.0-32.0); MAGNESIUM 2.1 MG/DL (1.5-2.5); POTASSIUM 3.8 MEQ/L (3.5-5.1)
[2016-08-10] MEDS ORDERED: INFLUENZA VIRUS VACCINE (QUADRIVALENT) 0.5 ML SYR IM ONE (10:00)
[2016-08-10] MEDS ORDERED: PNEUMOCOCCAL POLYVALENT INJ 25 MCG/0.5 ML SYR IM ONE (10:00)
[2016-08-10] MEDS: FUROSEMIDE 40 MG/4 ML VIAL IV PUSH SCH (10:16)
--- NOTE | 2016-08-10 11:00 | PD.CARD.PN ---
Subjective Subjective Remarks Pt says she feels very well, no complaints. Objective Medications Administered Medications Medications (Trade) Dose Ordered Sig/Vern Route PRN Reason Start Time Stop Time Status Last Admin Dose Admin IV Flush (NS Flush) 2 ml BID FLUSH 08/08/16 21:00 08/09/16 21:11 Acetaminophen (Tylenol) 650 mg Q4H PRN PO TEMP > 100.4 08/08/16 17:00 08/09/16 21:11 Furosemide (Lasix Inj) 40 mg BID@18 IV PUSH 08/08/16 20:00 08/10/16 10:16 Potassium Chloride (KCl) 10 meq DAILY PO 08/09/16 09:00 08/09/16 09:00 Heparin Sodium (Porcine) (Heparin Inj) 5,000 units Q8HR SQ 08/08/16 22:00 08/10/16 05:28 Clopidogrel Bisulfate (Plavix) 37.5 mg DAILY PO 08/09/16 09:00 08/09/16 09:00 Gabapentin (Neurontin) 100 mg HS PO 08/08/16 21:00 08/09/16 21:11 Hydralazine HCl (Apresoline) 25 mg TID PO 08/08/16 20:00 08/09/16 13:00 Levothyroxine Sodium 88 mcg 88 mcg DAILY@0600 PO 08/09/16 06:00 08/10/16 05:28 Azithromycin 500 mg/Sodium Chloride 250 ml @ 250 mls/hr Q24H IV 08/09/16 16:00 08/09/16 15:13 Ceftriaxone Sodium/Sodium Chloride (Rocephin Inj/NS Inj) 100 ml @ 200 mls/hr Q24H IV 08/09/16 15:00 08/09/16 14:45 Carvedilol (Coreg) 3.125 mg Q12HR PO 08/08/16 21:00 08/09/16 09:00 Vital Signs / I&O Vital Signs Date Time Temp Pulse Resp B/P Pulse Ox O2 Delivery O2 Flow Rate FiO2 08/10/16 08:19 98 Nasal Cannula 1.00 08/10/16 07:45 98.2 84 19 138/69 99 08/10/16 04:00 97.9 77 18 135/73 94 08/10/16 00:00 98.8 73 18 101/72 98 08/09/16 21:07 97 Nasal Cannula 1.00 08/09/16 20:00 99.5 80 18 98/69 98 08/09/16 19:39 88 08/09/16 15:25 98.7 82 20 96/52 100 08/09/16 14:30 98.7 82 20 96/52 100 08/09/16 11:25 96.7 85 20 123/70 97 I/O 08/09/16 08/09/16 08/09/16 08/10/16 08/10/16 08/10/16 07:00 15:00 23:00 07:00 15:00 23:00 Intake Total 480 ml Output Total 1550 ml 600 ml 2500 ml Balance -1550 ml -120 ml -2500 ml Intake Oral 480 ml Output Urine Total 1550 ml 600 ml 2500 ml # Bowel Movements 0 Physical Exam GENERAL: This is a well-nourished, well-developed patient, in no apparent distress. CARDIOVASCULAR: Regular rate and rhythm without murmurs, gallops, or rubs. RESPIRATORY: Clear to auscultation. Breath sounds equal bilaterally. No wheezes , rales, or rhonchi. GASTROINTESTINAL: Abdomen soft, non-tender, nondistended. Normal active bowel sounds MUSCULOSKELETAL: Extremities without clubbing, cyanosis, or edema. NEURO: Alert & Oriented x4 to person, place, time, situation. Moves all ext x4 Laboratory Laboratory Tests Test 08/10/16 07:51 White Blood Count 7.2 TH/MM3 Red Blood Count 4.46 MIL/MM3 Hemoglobin 10.9 GM/DL Hematocrit 35.5 % Mean Corpuscular Volume 79.5 FL Mean Corpuscular Hemoglobin 24.3 PG Mean Corpuscular Hemoglobin 30.6 % Concent Red Cell Distribution Width 16.6 % Platelet Count 167 TH/MM3 Mean Platelet Volume 10.0 FL Sodium Level 143 MEQ/L Potassium Level 3.8 MEQ/L Chloride Level 108 MEQ/L Carbon Dioxide Level 24.9 MEQ/L Anion Gap 10 MEQ/L Blood Urea Nitrogen 32 MG/DL Creatinine 2.51 MG/DL Estimat Glomerular Filtration 22 ML/MIN Rate Random Glucose 92 MG/DL Calcium Level 8.2 MG/DL Magnesium Level 2.1 MG/DL Imaging Last Impressions Chest X-Ray 08/08/16 1320 Signed Impressions: Service Date/Time: Monday, August 08, 2016 13:59 - CONCLUSION: 1. Cardiomegaly. 2. Bibasilar patchiness (left slightly worse than right) consistent with atelectasis and/or infiltrates. Clinical correlation is recommended. 3. Degenerative changes and scoliosis of the thoracolumbar spine. Ari Fiore MD Assessment and Plan Problem List: (1) CHF (congestive heart failure) Assessment and Plan: Only mildly reduced LVEF by echo, likely diastolic primarily. Off lasix now, will consider starting PO tomorrow depending on renal fxn. (2) CKD (chronic kidney disease) stage 4, GFR 15-29 ml/min Assessment and Plan: Cr. did bump up slightly w/ diuresis, will d/c lasix and encourage PO liquid today. (3) Dyspnea Assessment and Plan: Resolved. Assessment and Plan Pt will need PT and OOB to chair today, potentially could d/c tomorrow. Problem Qualifiers (1) CHF (congestive heart failure): Qualified Code: I50.9 - Congestive heart failure, unspecified congestive heart failure chronicity, unspecified congestive heart failure type (2) Dyspnea: Qualified Code: R06.00 - Dyspnea, unspecified type Scotty Berry MD Aug 10, 2016 11:00
[2016-08-10] MEDS: cefTRIAXone INJ 1,000 MG in SODIUM CHLORIDE 0.9% INJ 100 ML IV SCH (15:07)
--- NOTE | 2016-08-10 15:28 | HHI.PR ---
Subjective Remarks The patient was sitting up in a chair. She said she felt better. She said her left IV was bothering her. She said she has had a bowel movement. Discussed with nursing. Objective Vitals Vital Signs Date Time Temp Pulse Resp B/P Pulse Ox O2 Delivery O2 Flow Rate FiO2 08/10/16 11:30 97.7 67 20 126/62 97 08/10/16 08:19 98 Nasal Cannula 1.00 08/10/16 07:45 98.2 84 19 138/69 99 08/10/16 04:00 97.9 77 18 135/73 94 08/10/16 00:00 98.8 73 18 101/72 98 08/09/16 21:07 97 Nasal Cannula 1.00 08/09/16 20:00 99.5 80 18 98/69 98 08/09/16 19:39 88 08/09/16 15:25 98.7 82 20 96/52 100 I/O 08/09/16 08/09/16 08/09/16 08/10/16 08/10/16 08/10/16 07:00 15:00 23:00 07:00 15:00 23:00 Intake Total 480 ml Output Total 1550 ml 600 ml 2500 ml Balance -1550 ml -120 ml -2500 ml Intake Oral 480 ml Output Urine Total 1550 ml 600 ml 2500 ml # Bowel Movements 0 Result Diagram: 08/10/16 0751 08/10/16 0751 Imaging Last Impressions Chest X-Ray 08/08/16 1320 Signed Impressions: Service Date/Time: Monday, August 08, 2016 13:59 - CONCLUSION: 1. Cardiomegaly. 2. Bibasilar patchiness (left slightly worse than right) consistent with atelectasis and/or infiltrates. Clinical correlation is recommended. 3. Degenerative changes and scoliosis of the thoracolumbar spine. Ari Fiore MD Objective Remarks GENERAL: This is a well-nourished, well-developed patient, in no apparent distress. SKIN: No rashes, ecchymoses or lesions. Cool and dry. HEAD: Atraumatic. Normocephalic. No temporal or scalp tenderness. EYES: Pupils equal round and reactive. Extraocular motions intact. No scleral icterus. No injection or drainage. Right eye lid droop ENT: Nose without bleeding. Throat without erythema. Uvula midline. Airway patent. NECK: Trachea midline. No JVD or lymphadenopathy. Supple, nontender, no meningeal signs. CARDIOVASCULAR: Regular rate and rhythm without murmurs, gallops, or rubs. RESPIRATORY: CTAB. No W/R/R. GASTROINTESTINAL: Abdomen soft, non-tender, nondistended. No sounds active 4 No guarding. MUSCULOSKELETAL: Extremities without clubbing, cyanosis, bilateral lower extremity +1 edema right greater than the left. No joint tenderness, effusion noted. NEUROLOGICAL: Awake and alert. Motor and sensory grossly within normal limits. Moves all extremities. Normal speech. PSYCH: Mood and affect appropriate. Medications and IVs Current Medications Medications (Trade) Dose Ordered Sig/Vern Route Start Time Stop Time Status Last Admin (NS Flush) 2 ml UNSCH PRN FLUSH 08/08/16 17:00 (NS Flush) 2 ml BID FLUSH 08/08/16 21:00 08/09/16 21:11 (Tylenol) 650 mg Q4H PRN PO 08/08/16 17:00 08/09/16 21:11 (Zofran Inj) 4 mg Q6H PRN IVP 08/08/16 17:00 (Milk Of Magnesia Liq) 30 ml Q12H PRN PO 08/08/16 17:00 (Narcan Inj) 0.4 mg UNSCH PRN IV 08/08/16 17:00 (KCl) 10 meq DAILY PO 08/09/16 09:00 08/09/16 09:00 (Heparin Inj) 5,000 units Q8HR SQ 08/08/16 22:00 08/10/16 14:00 (Plavix) 37.5 mg DAILY PO 08/09/16 09:00 08/09/16 09:00 (Neurontin) 100 mg HS PO 08/08/16 21:00 08/09/16 21:11 (Apresoline) 25 mg TID PO 08/08/16 20:00 08/09/16 13:00 Levothyroxine Sodium 88 mcg 88 mcg DAILY@0600 PO 08/09/16 06:00 08/10/16 05:28 Azithromycin 500 mg/Sodium Chloride 250 ml @ 250 mls/hr Q24H IV 08/09/16 16:00 08/09/16 15:13 (Rocephin Inj/NS Inj) 100 ml @ 200 mls/hr Q24H IV 08/09/16 15:00 08/10/16 15:07 (Coreg) 3.125 mg Q12HR PO 08/08/16 21:00 08/09/16 09:00 A/P Problem List: (1) CHF (congestive heart failure) ICD Code: I50.9 Status: Acute (2) Dyspnea ICD Code: R06.00 Status: Acute (3) HTN (hypertension) ICD Code: I10 Status: Chronic (4) DM type 2 (diabetes mellitus, type 2) ICD Code: E11.9 Status: Chronic Assessment and Plan Patient is an 85-year-old female with primary medical history of hypertension, diabetes, CVA who came into the hospital with complaints of increasing shortness of breath and increasing cough. Reports that she has been having increasing shortness of breath and cough that started a few days ago but worsened in the last 2 days. Patient reports symptoms are worse with exertion. Acute systolic CHF exacerbation BNP 1113. Has not been seen by any industrial sales engineer. LDL and HgbA1c not elevated. Cardiology consult appreciated. Echo with mildly reduced EF. - hold IV Lasix. - Trejo to monitor I& O. - Continue O2 2 L nasal cannula. - Added a beta echo. PNA Chest x-ray showed cardiomegaly; Bibasilar patchiness (left slightly worse than right) consistent with atelectasis and/or infiltrates. Flu negative. No fever, WBC count elevation, or symptoms of PNA. - d/c ceftriaxone, azithromycin. - nebs and oxygen as needed. - Check a sputum culture. Chronic kidney disease Unsure of baseline. Increased with diuresis. - resume PO Lasix in AM if creatinine stable. - outpt follow-up. HTN Well controlled 08/10. - Hold Norvasc for now. Continue home hydralazine. DM 2 A1c was 5.2%. - We will hold off on glimepiride. - Insulin sliding scale. Monitor Accu-Cheks. Anemia The pt is on ASA/ Plavix for history of CVA. Hemoccult negative. - follow CBC and transfuse as needed. DVT PPx: heparin. Discharge Planning May need SNF in 1-2 days. Problem Qualifiers (1) CHF (congestive heart failure): Qualified Code: I50.9 - Congestive heart failure, unspecified congestive heart failure chronicity, unspecified congestive heart failure type (2) Dyspnea: Qualified Code: R06.00 - Dyspnea, unspecified type (3) DM type 2 (diabetes mellitus, type 2): Bishop Ruano DO Aug 10, 2016 15:28
[2016-08-10] MEDS: GABAPENTIN 100 MG CAP PO SCH (16:42)
[2016-08-11] VITALS: BP 126/74; PULSE 86; RESP 18; TEMP 97.3; O2SAT 99
[2016-08-11 04:00] VITALS: BP 127/72; PULSE 72; RESP 18; TEMP 97.4; O2SAT 91
[2016-08-11] MEDS: LEVOTHYROXINE SODIUM 88 MCG TAB PO SCH (05:23)
[2016-08-11] MEDS: HEPARIN SODIUM - SQ 10,000 UNITS/ML VIAL SQ SCH ×2 (05:23→14:27)
[2016-08-11] MEDS: INSULIN ASPART SUPPLEMENTAL SCALE SQ SCH ×2 (05:34→11:00)
[2016-08-11 07:37] VITALS: O2SAT 94
[2016-08-11] MEDS: RESP: ALBUTEROL 2.5 MG/IPRATROPIUM 0.5 MG NEB (SCH) NEB ×2 (07:37→12:21)
[2016-08-11 08:17] LABS: BICARBONATE 28.7 MEQ/L (21.0-32.0); POTASSIUM 3.9 MEQ/L (3.5-5.1)
[2016-08-11 08:24] VITALS: BP 137/87; PULSE 73; RESP 18; TEMP 98; O2SAT 94
[2016-08-11] MEDS: SODIUM CHLORIDE 0.9% FLUSH 5 ML FLUSH FLUSH SCH (09:00)
[2016-08-11] MEDS: CARVEDILOL 3.125 MG TAB PO SCH (09:26)
[2016-08-11] MEDS: hydrALAZINE HCL 25 MG TAB PO SCH ×2 (09:26→14:27)
[2016-08-11] MEDS: POTASSIUM CHLORIDE 10 MEQ CONTROLLED RELEASE TAB PO SCH (09:27)
[2016-08-11] MEDS: CLOPIDOGREL 75 MG TAB PO SCH (09:27)
--- NOTE | 2016-08-11 09:41 | PD.CARD.PN ---
Subjective Subjective Remarks Pt feels very well, wants to go home. Objective Medications Administered Medications Medications (Trade) Dose Ordered Sig/Vern Route PRN Reason Start Time Stop Time Status Last Admin Dose Admin IV Flush (NS Flush) 2 ml BID FLUSH 08/08/16 21:00 08/11/16 09:00 Acetaminophen (Tylenol) 650 mg Q4H PRN PO TEMP > 100.4 08/08/16 17:00 08/09/16 21:11 Potassium Chloride (KCl) 10 meq DAILY PO 08/09/16 09:00 08/11/16 09:27 Heparin Sodium (Porcine) (Heparin Inj) 5,000 units Q8HR SQ 08/08/16 22:00 08/11/16 05:23 Clopidogrel Bisulfate (Plavix) 37.5 mg DAILY PO 08/09/16 09:00 08/11/16 09:27 Gabapentin (Neurontin) 100 mg HS PO 08/08/16 21:00 08/10/16 16:42 Hydralazine HCl (Apresoline) 25 mg TID PO 08/08/16 20:00 08/11/16 09:26 Levothyroxine Sodium (Synthroid) 88 mcg DAILY@0600 PO 08/09/16 06:00 08/11/16 05:23 Carvedilol (Coreg) 3.125 mg Q12HR PO 08/08/16 21:00 08/11/16 09:26 Vital Signs / I&O Vital Signs Date Time Temp Pulse Resp B/P Pulse Ox O2 Delivery O2 Flow Rate FiO2 08/11/16 08:24 98.0 73 18 137/87 94 08/11/16 07:37 94 21 08/11/16 04:00 97.4 72 18 127/72 91 08/11/16 04:00 97.4 72 18 127/72 91 08/11/16 00:00 97.3 86 18 126/74 99 08/10/16 20:51 99 Nasal Cannula 2.00 08/10/16 20:00 76 08/10/16 20:00 97.2 92 18 128/78 99 08/10/16 15:30 97.0 70 20 109/71 96 08/10/16 11:30 97.7 67 20 126/62 97 I/O 2/12/17 2/1208/10/16 08/11/16 08/11/16 08/11/16 07:00 15:00 23:00 07:00 15:00 23:00 Intake Total 360 ml Output Total 2500 ml 1500 ml 1800 ml Balance -2500 ml -1140 ml -1800 ml Intake Oral 360 ml Output Urine Total 2500 ml 1500 ml 1800 ml # Bowel Movements 1 Physical Exam GENERAL: This is a well-nourished, well-developed patient, in no apparent distress. CARDIOVASCULAR: Regular rate and rhythm without murmurs, gallops, or rubs. RESPIRATORY: Clear to auscultation. Breath sounds equal bilaterally. No wheezes , rales, or rhonchi. GASTROINTESTINAL: Abdomen soft, non-tender, nondistended. Normal active bowel sounds MUSCULOSKELETAL: Extremities without clubbing, cyanosis, or edema. NEURO: Alert & Oriented x4 to person, place, time, situation. Moves all ext x4 Laboratory Laboratory Tests Test 08/11/16 07:11 Sodium Level 143 MEQ/L Potassium Level 3.9 MEQ/L Chloride Level 106 MEQ/L Carbon Dioxide Level 28.7 MEQ/L Anion Gap 8 MEQ/L Blood Urea Nitrogen 33 MG/DL Creatinine 2.07 MG/DL Estimat Glomerular Filtration 27 ML/MIN Rate Random Glucose 85 MG/DL Calcium Level 8.4 MG/DL Imaging Last Impressions Chest X-Ray 08/08/16 1320 Signed Impressions: Service Date/Time: Monday, August 08, 2016 13:59 - CONCLUSION: 1. Cardiomegaly. 2. Bibasilar patchiness (left slightly worse than right) consistent with atelectasis and/or infiltrates. Clinical correlation is recommended. 3. Degenerative changes and scoliosis of the thoracolumbar spine. Ari Fiore MD Assessment and Plan Problem List: (1) CHF (congestive heart failure) Assessment and Plan: Only mildly reduced LVEF by echo, likely diastolic primarily. Will start low dose PO lasix, no potassium to to CKD. (2) CKD (chronic kidney disease) stage 4, GFR 15-29 ml/min Assessment and Plan: Improved today off the IV lasix, will try adding back low dose PO lasix starting tomorrow,. can be reevaluated as outpt. (3) Dyspnea Assessment and Plan: Resolved Assessment and Plan Ok to d/c home from cardiac standpoint, will see in my office in 1-2 weeks. Problem Qualifiers (1) CHF (congestive heart failure): Qualified Code: I50.9 - Congestive heart failure, unspecified congestive heart failure chronicity, unspecified congestive heart failure type (2) Dyspnea: Qualified Code: R06.00 - Dyspnea, unspecified type Scotty Berry MD Aug 11, 2016 09:41
[2016-08-11] MEDS ORDERED: FUROSEMIDE 20 MG TAB PO ONE (09:45)
[2016-08-11 12:32] VITALS: BP 140/72; PULSE 98; RESP 18; TEMP 97.8; O2SAT 93
[2016-08-11] MEDS ORDERED: CLOP75TA PO (15:00)
[2016-08-11] MEDS ORDERED: CARV3.125 PO (15:00)
[2016-08-11] MEDS ORDERED: AMLO5TAB2 PO (15:00)
[2016-08-11] MEDS ORDERED: GABA100C4 PO (15:00)
[2016-08-11] MEDS ORDERED: HYDR25TA35 PO (15:00)
[2016-08-11] MEDS ORDERED: FURO20TA PO (15:00)
[2016-08-11] MEDS ORDERED: GLIM2TAB PO (15:00)
[2016-08-11] MEDS ORDERED: LEVO88TA2 PO (15:00)
--- NOTE | 2016-08-11 15:01 | HHI.DCPOC ---
Discharge Care Plan Diagnosis: (1) CHF (congestive heart failure) (2) Dyspnea (3) HTN (hypertension) (4) DM type 2 (diabetes mellitus, type 2) (5) CKD (chronic kidney disease) stage 4, GFR 15-29 ml/min Goals to Promote Your Health * To prevent worsening of your condition and complications * To maintain your health at the optimal level Directions to Meet Your Goals Take your medications as prescribed Follow your dietary instruction Follow activity as directed Keep your appointments as scheduled Take your immunizations and boosters as scheduled If your symptoms worsen call your PCP, if no PCP go to Urgent Care Center or Emergency Room Smoking is Dangerous to Your Health. Avoid second hand smoke Call the 24-hour hour crisis hotline for domestic abuse at Bishop Ruano DO Aug 11, 2016 15:01
--- NOTE | 2016-08-11 15:03 | HHI.FF ---
Face to Face Verification Diagnosis: (1) Dyspnea (2) CHF (congestive heart failure) (3) HTN (hypertension) (4) DM type 2 (diabetes mellitus, type 2) (5) CKD (chronic kidney disease) stage 4, GFR 15-29 ml/min Physical Therapy Order: Evaluate and Treat, Improve ambulation, Strength and gait training Home Health Nursing Order: Medical education Signs/symptoms of disease process Diabetic education CHF education Medication education-adverse effect Nursing assessment with vital signs I have seen patient Arelis Aguilar on 08/11/16. My clinical findings support the need for the requested home health care services because: Ltd mobility - disease progression Patient has SOB Deconditioned w/ increased weakness Med compliance is questionable Limited ability to care for self High risk of falls I certify that my clinical findings support that this patient is homebound because: Unsteady gait/balance Unsafe to leave home unassisted Bishop Ruano DO Aug 11, 2016 15:03
--- NOTE | 2016-08-11 15:10 | HHI.DS ---
Discharge Summary Admission Date Aug 08, 2016 at 15:42 Discharge Date: Aug 11, 2016 Admitting Diagnosis CHF, dyspnea, hypoxia (1) CHF (congestive heart failure) ICD Code: I50.9 Diagnosis: Principal (2) Dyspnea ICD Code: R06.00 (3) HTN (hypertension) ICD Code: I10 (4) DM type 2 (diabetes mellitus, type 2) ICD Code: E11.9 Procedures None. Brief History - From Admission Patient is an 85-year-old female with primary medical history of hypertension, diabetes, CVA who came into the hospital with complaints of increasing shortness of breath and increasing cough. Reports that she has been having increasing shortness of breath cough started a few days ago but worsened in the last 2 days. Patient reports worse with exertion. Coughing but not expectorating anything. Denies any history of cardiopulmonary disease or diagnosis of congestive heart failure. Denies fevers, chills, nausea, vomiting , diarrhea. Denies chest pain, palpitations, headache, lightheadedness. Denies any dysuria, hematuria, abdominal pain. As per ER report, patient but history of blood clot in her left leg years ago but not on any anticoagulants. Labs reviewed. CBC with low MCV 79, MCH 25.5, MCHC 31.9. CMP chloride 109, creatinine 2.24, estimated GFR 25. First troponin 0.07. BNP 1113. Chest x-ray showed cardiomegaly. Bibasilar patchiness (left slightly worse than right) consistent with atelectasis and/or infiltrates. Clinical correlation is recommended. Degenerative changes and scoliosis of the thoracolumbar spine. Negative for flu a and B. Blood Cultures pending The patient complains of increasing shortness of breath. She does complain of chest pain from time to time. She does admit to some lower extremity swelling. She ambulates with a cane and a walker. She does not have home oxygen. She does not follow-up with doctors regularly. She was complaining of pain in her left IV site. CBC/BMP: 08/10/16 0751 08/11/16 0711 Significant Findings Laboratory Tests Test 08/08/16 08/08/16 08/09/16 08/10/16 17:15 19:40 02:03 07:51 Urine Protein 30 mg/dL (NEG-TRACE) Urine Mucus FEW /lpf (OCC) Troponin I 0.07 NG/ML (0.02-0.05) White Blood Count 3.6 TH/MM3 (4.0-11.0) Hemoglobin 10.0 GM/DL 10.9 GM/DL (11.6-15.3) (11.6-15.3) Hematocrit 32.2 % (35.0-46.0) Mean Corpuscular Volume 78.8 FL 79.5 FL (80.0-100.0) (80.0-100.0) Mean Corpuscular Hemoglobin 24.5 PG 24.3 PG (27.0-34.0) (27.0-34.0) Mean Corpuscular Hemoglobin 31.1 % 30.6 % Concent (32.0-36.0) (32.0-36.0) Neutrophils (%) (Auto) 89.7 % (16.0-70.0) Lymphocytes (%) (Auto) 7.6 % (9.0-44.0) Lymphocytes # (Auto) 0.3 TH/MM3 (1.0-4.8) Platelet Estimate LOW (NORMAL) Ovalocytes 1+ (NORMAL) Chloride Level 112 MEQ/L 108 MEQ/L (98-107) (98-107) Blood Urea Nitrogen 24 MG/DL (7-18) 32 MG/DL (7-18) Creatinine 2.36 MG/DL 2.51 MG/DL (0.50-1.00) (0.50-1.00) Estimat Glomerular Filtration 24 ML/MIN (>89) 22 ML/MIN (>89) Rate Random Glucose 167 MG/DL (74-106) Calcium Level 7.9 MG/DL 8.2 MG/DL (8.5-10.1) (8.5-10.1) Iron Level 25 MCG/DL (50-170) Percent Iron Saturation 8.0 % (20-50) Aspartate Amino Transf 13 U/L (15-37) (AST/SGOT) Albumin 3.0 GM/DL (3.4-5.0) HDL Cholesterol 81.5 MG/DL (40.0-60.0) Test 08/11/16 07:11 Blood Urea Nitrogen 33 MG/DL (7-18) Creatinine 2.07 MG/DL (0.50-1.00) Estimat Glomerular Filtration 27 ML/MIN (>89) Rate Calcium Level 8.4 MG/DL (8.5-10.1) Imaging Last Impressions Chest X-Ray 08/08/16 1320 Signed Impressions: Service Date/Time: Monday, August 08, 2016 13:59 - CONCLUSION: 1. Cardiomegaly. 2. Bibasilar patchiness (left slightly worse than right) consistent with atelectasis and/or infiltrates. Clinical correlation is recommended. 3. Degenerative changes and scoliosis of the thoracolumbar spine. Ari Fiore MD PE at Discharge GENERAL: This is a well-nourished, well-developed patient, in no apparent distress. SKIN: No rashes, ecchymoses or lesions. Cool and dry. HEAD: Atraumatic. Normocephalic. No temporal or scalp tenderness. EYES: Pupils equal round and reactive. Extraocular motions intact. No scleral icterus. No injection or drainage. Right eye lid droop ENT: Nose without bleeding. Throat without erythema. Uvula midline. Airway patent. NECK: Trachea midline. No JVD or lymphadenopathy. Supple, nontender, no meningeal signs. CARDIOVASCULAR: Regular rate and rhythm without murmurs, gallops, or rubs. RESPIRATORY: CTAB. No W/R/R. GASTROINTESTINAL: Abdomen soft, non-tender, nondistended. No sounds active 4 No guarding. MUSCULOSKELETAL: Extremities without clubbing, cyanosis, bilateral lower extremity +1 edema right greater than the left. No joint tenderness, effusion noted. NEUROLOGICAL: Awake and alert. Motor and sensory grossly within normal limits. Moves all extremities. Normal speech. PSYCH: Mood and affect appropriate. Pt update on day of discharge The patient was feeling well. She wanted to go home. Her grandson was at bedside and his questions were answered. They did not want to go to rehabilitation and wanted to return home. The patient was breathing comfortably without oxygen. Discussed with nursing and case management. Hospital Course Acute systolic CHF exacerbation BNP 1113. CXR with bibasilar patchiness. LDL and HgbA1c not elevated. Cardiology was consulted. The pt was started on IV Lasix. Echo with mildly reduced EF. We held IV Lasix in the setting of renal insufficiency. We placed a Trejo to monitor I/Os. We added a beta echo to her cardiac regimen. She continued to improved. She will continue low dose Lasix on discharge. She will follow up with cardiology as an outpt. A low salt diet and fluid restriction were recommended. PNA Chest x-ray showed cardiomegaly; Bibasilar patchiness (left slightly worse than right) consistent with atelectasis and/or infiltrates. Flu negative. No fever, WBC count elevation, or symptoms of PNA. We d/c ceftriaxone and azithromycin. She received nebs and oxygen as needed. She will follow up with her PCP. Chronic kidney disease Creatinine increased with diuresis but then CONNIE resolved when diuresis was held. Will resume low dose Lasix on discharge. HTN Continued on home hydralazine. Amlodipine decreased to 5 mg daily. Low dose Coreg added. Anemia Hemoccult negative. CBC remained stable. Pt Condition on Discharge: Stable Discharge Disposition: Disch w/ Home Health Serv Discharge Time: > 30 minutes Discharge Instructions DIET: Follow Instructions for: Heart Healthy Diet Activities you can perform: Weight Bearing as Raad Follow up Referrals: Cardiology - 1 Week with Scotty Berry MD PCP Follow-up - 1 Week New Orders: BASIC METABOLIC PROF - 1 Week New Medications: Amlodipine (Amlodipine) 5 Mg Tab 5 MG PO DAILY Blood Pressure Management #30 Ref 0 TAB Furosemide (Furosemide) 20 Mg Tab 20 MG PO DAILY Fluid retention #30 Ref 0 TAB Wheelchair (Wheelchair) 1 Mis Mis 1 EA .ROUTE DIRECTED #1 Ref 0 EA Carvedilol (Coreg) 3.125 Mg Tab 3.125 MG PO Q12HR Heart #60 TAB Continued Medications: Aspirin (Aspirin) 325 Mg Tab 325 MG PO ONCE #1 Ref 0 TAB Clopidogrel (Clopidogrel) 75 Mg Tab 37.5 MG PO DAILY Blood Clot Prevention #30 Ref 0 TAB (This prescription has been renewed) Gabapentin (Gabapentin) 100 Mg Cap 100 MG PO HS Neuropathy #30 Ref 0 CAP (This prescription has been renewed) Glimepiride (Glimepiride) 2 Mg Tab 2 MG PO DAILY Take with breakfast or first main meal Blood Sugar Management #30 Ref 0 TAB (This prescription has been renewed) Hydralazine (Hydralazine) 25 Mg Tab 25 MG PO TID Take with a meal Blood Pressure Management #90 Ref 0 TAB (This prescription has been renewed) Levothyroxine (Levothyroxine) 88 Mcg Tab 88 MCG PO DAILY Thyroid #30 Ref 0 TAB (This prescription has been renewed) Discontinued Medications: Amlodipine (Amlodipine) 10 Mg Tab 10 MG PO DAILY Blood Pressure Management #30 Ref 0 TAB Bishop Ruano DO Aug 11, 2016 15:10
[2016-08-11] MEDS ORDERED: WHEEMIS3 (15:17)
== END 2016-08-11 16:26 | disposition home health service (06) | DRG 292 ==
LOC: NEPE 12:51 → NEDA 15:42 → N05A 08-09 00:53
PROVIDERS: ADMIT Hospitalist; ATTEND Hospitalist
DX: I50.21 Acute systolic (congestive) heart failure (principal); N17.9 Acute kidney failure, unspecified; N18.4 Chronic kidney disease, stage 4 (severe); E11.22 Type 2 diabetes mellitus with diabetic chronic kidney disease; D64.9 Anemia, unspecified; J98.11 Atelectasis; I13.0 Hypertensive heart and chronic kidney disease with heart failure and stage 1 through stage 4 chronic kidney disease, or unspecified chronic kidney disease; E03.9 Hypothyroidism, unspecified; R09.02 Hypoxemia; Z86.73 Personal history of transient ischemic attack (TIA), and cerebral infarction without residual deficits; Z86.718 Personal history of other venous thrombosis and embolism; Z79.02 Long term (current) use of antithrombotics/antiplatelets; Z23 Encounter for immunization; Z79.84 Long term (current) use of oral hypoglycemic drugs; Z88.0 Allergy status to penicillin; Z79.82 Long term (current) use of aspirin
CPT/HCPCS: 36600; 71010; 76937; 80048; 80053; 80061; 81001; 82272; 82550; 82607; 82746; 82805; 82948; 83036; 83540; 83550; 83605; 83735; 83880; 84484; 85025; 85027; 85610; 85730; 87040; 87804; 90471; 90472; 90686; 90732; 93005; 93306; 94640; 94664; 96365; 96375; G0008; G0009; J0456; J0696; J1644; J1815; J1940; J2930; J7050; Q2038